=== PATIENT | male | born 1955 | race Caucasian/White ===

== ENCOUNTER 2017-08-28 00:03 | Emergency (ER) | payer OTHER, SELFPAY ==
[2017-08-28 00:13] VITALS: BP 145/77; PULSE 93; RESP 18; TEMP 36.4; O2SAT 97; BMI 26.7
--- NOTE | 2017-08-28 01:40 | DI.CT.S_ITS ---
PROCEDURE: CT ABDOMEN PELVIS WO CON INDICATIONS: Mid abdominal pain TECHNIQUE: Noncontrast 5 mm thick sections acquired from the diaphragms to the symphysis. 5 mm coronal and sagittal reformats were then performed. For radiation dose reduction, the following was used: automated exposure control, adjustment of mA and/or kV according to patient size. COMPARISON: None. FINDINGS: Preliminary report by external grinder tool radiology Image quality: Exam is limited by absence of IV contrast ABDOMEN: Lung bases: Lung bases are clear. Calcified granuloma right lower lobe. Heart size is normal. Solid organs: Liver is normal in size. Small calcifications in the liver. Gallbladder appears clear. Pancreas is normal in contours. Spleen is normal in size. No adrenal nodules. Kidneys are normal in size, without hydronephrosis or nephrolithiasis. Peritoneum and bowel: Unenhanced small bowel loops demonstrate diffuse enlargement, most marked proximally. Small bowel shows areas of mild wall thickening. No appreciable fat stranding or fluid collections. Normal appendix. Colon is unremarkable. No free fluid or air. Nodes and vessels: No retroperitoneal or mesenteric adenopathy by size criteria. Aorta and inferior vena cava are normal in caliber. Miscellaneous: No ventral hernias. PELVIS: Genitourinary: Bladder wall thickness is normal. Normal size prostate with mild dystrophic calcifications. Seminal vesicles appear normal. Miscellaneous: No inguinal hernias or adenopathy. Bones: No suspicious bony lesions. No vertebral body compression fractures. IMPRESSION: 1. Calcified granulomatous changes in the right lower lobe and liver. 2. Diffuse small bowel enlargement with areas of mild wall thickening. No mesenteric adenopathy or fat stranding. No evidence of abscess. Findings may represent nonspecific enteritis. Early partial small bowel obstruction cannot be excluded. Findings are concordant with the preliminary report. Dictated by: Kelvin Wild M.D. on 08/28/2017 at 7:55 Approved by: Kelvin Wild M.D. on 08/28/2017 at 8:02
[2017-08-28 02:18] LABS: Add Manual Diff / Slide Review NO; Basophils Percent Auto 0.5 % (0-2); Eosinophils Percent Auto 1.3 % (2-4); Hematocrit 40.7 % (41-53); Hemoglobin 13.9 g/dL (13.5-17.5); Lymphocytes Percent Auto 15.5 % (25-40); Mean Corpuscular Hemoglobin 30.9 PG (26-34); Mean Corpuscular Volume 90.7 fL (80-100); Monocytes Percent Auto 9.1 % (3-14); Neutrophils Absolute Auto 7900 /uL (3000-5900); Neutrophils Percent Auto 73.6 % (50-75); Platelet Count 300 X10^3/uL (150-400); Red Blood Cell Count 4.49 X10^6/uL (4.5-5.9); Red Cell Distribution Width 13.5 % (11.6-14.8); White Blood Cell Count 10.7 X10^3/uL (4.5-11.0)
[2017-08-28 02:24] LABS: Alanine Aminotransferase 37 IU/L (21-72); Albumin 3.9 g/dL (3.5-5.0); Albumin Globulin Ratio 1.2 (1.0-2.8); Alkaline Phosphatase 85 U/L (38-126); Aspartate Aminotransferase 26 IU/L (17-59); BUN Creatinine Ratio 26.3 (6-22); Bilirubin Total 0.4 mg/dL (0.2-1.3); Calcium 9.2 mg/dL (8.4-10.2); Estimated Glomerular Filt Rate > 60.0 mL/min (>60); Globulin 3.2 g/dL (1.7-4.1); Glucose 123 mg/dL (80-110); HEMOLYSIS < 15 (0-50); Lipase 80 U/L (23-300); Potassium 3.7 mmol/L (3.4-5.1); Sodium 142 mmol/L (137-145); Total Protein 7.1 g/dL (6.3-8.2)
[2017-08-28 02:25] LABS: Lactate (Lactic Acid) 1.1 mmol/L (0.7-2.1)
[2017-08-28 03:19] VITALS: BP 131/72; PULSE 76; RESP 16; O2SAT 99
--- NOTE | 2017-08-28 04:16 | ED_ITS ---
HPI - Abdominal Pain General Chief Complaint: Abdominal Pain Stated Complaint: ABDOMINAL PAIN SENT BY [employer] Time Seen by Provider: 08/28/17 00:38 History of Present Illness HPI narrative: HPI 62 y/o male with no known pertinent past medical history presents for evaluation of resolving abdominal pain. Patient reports that he experienced severe, sudden onset abdominal pain that was bilateral and at the level of his umbilicus. The pain started around midday and waxed and waned through the afternoon. The patient is unable to drive and incapacitated. The patient decided to leave his trip to [facility] and [place] by [place] the [place]. While in the emergency department the patient felt a sudden urge to defecate and pass a large volume of loose watery stools (nonbloody) and had significant improvements pain and feels only the ghost of the prior discomfort. Denies nausea and vomiting. Denies dysuria and urinary frequency. Denies a history of atrial fibrillation. No prior abdominal surgeries. M/S/F/SocHx notable for: please see HPI; remainder reviewed with patient and in chart. ROS: Negative constitutional, eye, cardiovascular, pulmonary, GI, , MSK, skin , neurologic, psychiatric, endocrine unless noted in the HPI. Exam Gen: Pleasant, non-toxic appearing, resting comfortably. HEENT: NC, AT, PEERL, EOMI. Resp: Clear to auscultation bilaterally, normal work of breathing, no accessory muscle usage. Card: Regular rate and rhythm with no murmurs, rubs, or gallops, extremities warm and well perfused. GI: Non-tender to palpation throughout all quadrants, no focal tenderness at McBurney's point, negative Ortiz's sign, non-distended, no rebound or guarding. : No suprapubic tenderness to palpation. MSK: No visible deformities, strength and tone without visually appreciable deficit. Skin: Normal color with no visible lesions. Neuro: AO x 3, no facial asymmetry, vision and hearing WNL. Psych: Mood and affect appropriate. Labs / Imaging: CT Abd/Pelvis: distended loops of fluid-filled small bowel. The proximal small bowel is distended relative to the distal small bowel. It is possible this could represent an early small bowel obstruction but I wonder if this might be a manifestation some type of gastroenteritis. Lactate 1.1 WBC 10.7, Hb 13.9, Na 142, K 3.7, Cr 0.0 Conjugated bilirubin 0.4, ALP 26, AST 37, ALT 85, lipase 80 MDM Previous chart, nursing note, labs, imaging, and vitals reviewed. A: 62 y/o male with no known pertinent past medical history presents for evaluation of resolving abdominal pain. DDx: intermittent obstruction, obstruction, appendicitis, mesenteric ischemia, ureterolithiasis, biliary disease. Evaluation: patient with resolution symptoms in the emergency department, had frequent loose watery stools (x6). Strongly doubt acute intra-abdominal process given the benign exam, vital signs are stable within acceptable limits, normal white blood cell count, normal lactic acid, normal liver enzymes, normal lipase , and a CT consistent with a history - namely demonstrating findings consistent with gastroenteritis. As the patient is without belching,, vomiting upper abdominal fullness or distention early small bowel obstruction is considered exceedingly unlikely. This was reviewed with patient, the patient was prescribed dicyclomine, in discharge with PCP follow-up in return to care as needed. Disposition: Patient was notified of their elevated blood pressure and recommended to follow up with their primary care physician. As the patient is without evidence of acute end organ dysfunction no further emergent evaluation is indicated as per the 2013 [facility] clinical policy. Impression: abdominal pain, gastroenteritis (please reference below for remainder of encounter information) Related Data Allergies Allergy/AdvReac Type Severity Reaction Status Date / Time Ct contrast Allergy Uncoded 08/28/17 03:19 Exam Initial Vital Signs Initial Vital Signs: Vital Signs Temperature 97.6 F 08/28/17 00:13 Pulse Rate 93 H 08/28/17 00:13 Respiratory Rate 18 08/28/17 00:13 Blood Pressure 145/77 H 08/28/17 00:13 Pulse Oximetry 97 08/28/17 00:13 Course Orders Ordered: ED Orders 08/28/17 01:40 CT abdomen pelvis wo con Stat Urinalysis and Microscopic Stat 08/28/17 02:05 Complete Blood Count AUTO DIFF Stat Comprehensive Metabolic Panel Stat Lactate (Lactic Acid) Stat Lipase Stat Vital Signs - 8 hr 08/28/17 00:13 08/28/17 03:19 Temperature 97.6 F Pulse Rate 93 H 76 Respiratory Rate 18 16 Blood Pressure 145/77 H Blood Pressure [Left Arm] 131/72 H Pulse Oximetry 97 99 MDM - Abdominal Pain Lab Data Result diagrams: 08/28/17 02:05 08/28/17 02:05 Lab Results 08/28/17 08/28/17 08/28/17 Range/Units 02:05 02:05 02:05 WBC 10.7 (4.5-11.0) X10^3/uL RBC 4.49 L (4.5-5.9) X10^6/uL Hgb 13.9 (13.5-17.5) g/dL Hct 40.7 L (41-53) % MCV 90.7 (80-100) fL MCH 30.9 (26-34) PG MCHC 34.0 (30-36) % RDW 13.5 (11.6-14.8) % Plt Count 300 (150-400) X10^3/uL Neut % (Auto) 73.6 (50-75) % Lymph % (Auto) 15.5 L (25-40) % [place] % (Auto) 9.1 (3-14) % Eos % (Auto) 1.3 L (2-4) % Baso % (Auto) 0.5 (0-2) % Neut # (Auto) 7900 H (5257-0185) /uL Sodium 142 (137-145) mmol/L Potassium 3.7 (3.4-5.1) mmol/L Chloride 99.0 (98-107) mmol/L Carbon Dioxide 29.0 (22-32) mmol/L BUN 21.0 H (9-20) mg/dL Creatinine 0.80 (0.66-1.25) mg/dL Estimated GFR > 60.0 (>60) mL/min BUN/Creatinine Ratio 26.3 H (6-22) Glucose 123 H (80-110) mg/dL Lactate 1.1 (0.7-2.1) mmol/L Calcium 9.2 (8.4-10.2) mg/dL Total Bilirubin 0.4 (0.2-1.3) mg/dL AST 26 (17-59) IU/L ALT 37 (21-72) IU/L Alkaline Phosphatase 85 (38-126) U/L Total Protein 7.1 (6.3-8.2) g/dL Albumin 3.9 (3.5-5.0) g/dL Globulin 3.2 (1.7-4.1) g/dL Albumin/Globulin Ratio 1.2 (1.0-2.8) Lipase 80 (23-300) U/L
--- NOTE | 2017-08-28 04:30 | PC.NURSE ---
Pt had several loose stools while in ER and states abd pain improving. Denies blood in stool.
== END 2017-08-28 04:25 | disposition home or self-care (01) ==
PROVIDERS: Emergency Provider Emergency Medicine
DX: R10.9 Unspecified abdominal pain (principal); K52.9 Noninfective gastroenteritis and colitis, unspecified
CPT/HCPCS: 36591; 74176; 80053; 83605; 83690; 85025; 99282; 99284